=== PATIENT | male | born 1955 | race Caucasian/White ===

== ENCOUNTER 2018-12-31 11:54 | Day surgery (SDC) | payer OTHER, SELFPAY ==
[2018-12-31] VITALS (7 sets, daily range): BP systolic 131–145; BP diastolic 82–94; PULSE 64–69; RESP 12–16; TEMP 35.7–36.2; O2SAT 95–100; BMI 33.5
[2018-12-31] MEDS: SODIUM CHLORIDE 0.9% 1,000 ML 42 ML IV (12:15)
--- NOTE | 2018-12-31 13:24 | PM.HP.1 ---
History of Present Illness Date Patient Seen: 12/31/18 Time Patient Seen: 13:25 Chief complaint: EGD [id number] Narrative: Recurrent dysphagia. Patient has a history of previous substernal dysphagia which required upper endoscopy. At that time he had an esophageal dilation performed which help substantially. He was told he had a ?burning?. He has no significant reflux. Patient History Social History household members: spouse Family & Social History Social History: household members spouse Meds Home Medications Medication Instructions Recorded Confirmed Type desonide 1 applic TOPICAL DAILY PRN 12/31/18 12/31/18 History ketoconazole 1 applic TOPICAL DAILY PRN 12/31/18 12/31/18 History sildenafil 50 mg PO DAILY PRN 12/31/18 12/31/18 History Allergies Allergy/AdvReac Type Severity Reaction Status Date / Time No Known Drug Allergies Allergy Verified 12/31/18 12:17 Exam Vital Signs (past 8 hours): - 12/31/18 12:30 Temperature 96.7 F L Pulse Rate 64 Respiratory Rate 16 Blood Pressure 145/82 H Pulse Oximetry 98 Oxygen Delivery Method Room Air Narrative Exam Narrative: Oropharynx free of lesions Chest clear to auscultation percussion Cardiac exam reveals no S3 or murmur Assessment & Plan Assessment & Plan narrative: Recurrent dysphagia probably from recurrent Schatzki's ring. Need for evaluation and probable dilation. Risks benefits and alternatives have been explained. Further recommendations will follow
--- NOTE | 2018-12-31 14:18 | SUR.OPER ---
Savory dilator size 51 used to dilate patient.
--- NOTE | 2018-12-31 14:23 | P.OP.ENDO_ITS ---
Operative Date/Time/Diagnoses Date of procedure: 12/31/18 Time of procedure: 14:20 Pre-op diagnosis: See indication and findings Procedure & Clinicians Study performed: EGD with dilation Same procedure as scheduled: Yes Indications: Recurrent dysphagia Surgeon: Laura Tony Procedure Notes Procedure in detail: After informed consent was obtained the patient placed in lateral decubitus position. Video upper scope was placed into the oropharynx with the patient told the esophagus. The esophagus stomach and duodenum carefully examined. On withdrawal retroflexed view the GE junction was performed. The scope was removed. The patient tolerated the procedure well. Blood loss none Complications none Sedation Fentanyl 100 mcg Versed 5 mg IV titration Total sedation time 12 min Findings 1. No clear evidence of possible eosinophilic esophagitis 2. Inability to completely evaluate the GE junction. There seemed to be a bit more spasm than normal. There did seem to be a bit of a ring which I was able to ?pop? through with the scope and subsequently a very small amount of blood was seen. Retroflexed view did not clearly show the ring. Still, given past history, I elected to dilate with 51 Spanish Savary without any difficulty. 3. Normal stomach otherwise 4. Normal duodenal bulb and sweep Will merely see how the patient does with the dilation. If he is still having problems he should follow up with myself or other doctor in our office.
== END 2018-12-31 15:22 ==
LOC: ENDO 11:55
PROVIDERS: PCP Family Medicine; Visit Provider Internal Medicine Gastroenterology
PROC: 0DJ08ZZ Inspection of Upper Intestinal Tract, Via Natural or Artificial Opening Endoscopic (ICD-10-PCS; CPT 43235; principal; 2018-12-31 13:00)
DX: R13.10 Dysphagia, unspecified (principal)
CPT/HCPCS: 43248

== ENCOUNTER 2019-04-24 17:04 | Observation (INO) | payer OTHER, SELFPAY ==
[2019-04-24 17:19] VITALS: BP 146/99; PULSE 77; RESP 18; TEMP 36.9; O2SAT 98; BMI 33.5
--- NOTE | 2019-04-24 17:34 | ED_ITS ---
HPI - Chest Pain General Chief Complaint: Chest Pain Stated Complaint: trouble swallowing Time Seen by Provider: 04/24/19 17:27 Source: patient and family () Mode of arrival: ambulatory Limitations: no limitations History of Present Illness HPI narrative: 64-year-old male comes to the emergency department with complaint of difficulty swallowing/dysphagia. Patient has had episodes in the past. He has had multiple episodes recently. He states he has had 2 EGDs in the past, he states he thinks he was dilated at least 1 maybe both of them. The most recent was here in December with GI. Patient states last night he had some [place] fried chicken leftovers. He felt like it got stuck. Since then he has been spitting up saliva. And occasionally sort of spitting up for vomiting a large amount of saliva. He has not brought up any food. He has substernal discomfort. Patient has not had any fevers, no shortness of breath. No vomiting of food contents. Normal bowel movements and urination. He does not take any medications regularly. He denies any other past medical history. He has had a back surgery a micro diskectomy in 2002. He states after the 1st dilation he went a fairly long period of time for a started having incidence. After the most recent 1 in December he has been having them 1 sometimes twice a month since. Usually he is able to pass the food without any intervention he states he has never been to the emergency department for this problem. He denies any tobacco or alcohol use. He is accompanied by his . Related Data Home Medications Medication Instructions Recorded Confirmed desonide 1 applic TOPICAL DAILY PRN 12/31/18 04/24/19 ketoconazole 1 applic TOPICAL DAILY PRN 12/31/18 04/24/19 sildenafil 50 mg PO DAILY PRN 12/31/18 04/24/19 ibuprofen 1 dose PO PRN PRN 04/24/19 04/24/19 Allergies Allergy/AdvReac Type Severity Reaction Status Date / Time No Known Drug Allergies Allergy Verified 12/31/18 12:17 Review of Systems Review of Systems ROS Unobtainable: All systems reviewed & are unremarkable except as noted in HPI and below Constitutional Denies chills, Denies fever(s) and Denies lethargy ENT Ears, Nose, Mouth, and Throat: Reports dysphagia Cardiovascular Reports chest pain, Denies syncope, Denies dyspnea, Denies dyspnea on exertion and Denies orthopnea Respiratory Denies change in phlegm color, Denies chest congestion, Denies cough, Denies dyspnea, Denies dyspnea on exertion and Denies wheezing Gastrointestinal Gastrointestinal: Denies abdominal pain, Denies change in bowel habits, Denies constipation, Reports dysphagia, Denies diarrhea, Denies nausea and Reports vomiting (Spitting up saliva) Genitourinary Denies hematuria, Denies flank pain, Denies urinary frequency and Denies urinary urgency Musculoskeletal Denies back pain Neurologic Denies syncope Allergic/Immunologic Denies wheezing [facility] Surgical History H/O microdiscectomy (Chronic) History of esophagogastroduodenoscopy (EGD) (Chronic) Social History household members: spouse Smoking Status: Never smoker Social History household members: spouse Smoking Status: Never smoker Exam Narrative Exam Narrative: GENERAL: Alert and oriented x three, obese, well-appearing male in mild distress. HEENT: Head normocephalic, atraumatic, EOMI, pupils reactive, face symmetric, moist mucous membranes NECK: Supple, full range of motion CARDIOVASCULAR: Regular rate and rhythm without murmurs, rubs or gallops. RESPIRATORY: Breath sounds equal bilaterally, no wheezes rales or rhonchi. ABDOMEN: Soft, nontender. Normoactive bowel sounds all 4 quadrants. No guarding or rebound, rigidity, no mass, patient is regularly spinning out small amounts of saliva. : No CVA tenderness EXTREMITIES: Normal range of motion, no clubbing or edema. Neurovascularly intact NEUROLOGICAL: Cranial nerves II through XII grossly intact. Moving all extremities SKIN: Warm, dry, no petechiae, no rashes or lesions. Initial Vital Signs Initial Vital Signs: Vital Signs Temperature 98.4 F 04/24/19 17:19 Pulse Rate 77 04/24/19 17:19 Respiratory Rate 18 04/24/19 17:19 Blood Pressure 146/99 H 04/24/19 17:19 Pulse Oximetry 98 04/24/19 17:19 Course Orders Ordered: ED Orders 04/24/19 17:19 EKG-12 Lead Stat 04/24/19 17:38 Basic Metabolic Panel Stat Complete Blood Count AUTO DIFF Stat Discontinued Medications Glucagon (Glucagen) 1 mg IV NOW ONE Stop: 04/24/19 17:28 Last Admin: 04/24/19 17:40 Dose: 1 mg Sodium Chloride (Normal Saline 0.9%) 1,000 mls @ 1,000 mls/hr IV BOLUS ONE Stop: 04/24/19 18:38 Last Infusion: 04/24/19 18:50 Dose: 0 mls/hr Admin: 04/24/19 17:40 Dose: 1,000 mls/hr Vital Signs - 8 hr 04/24/19 17:19 04/24/19 18:52 Temperature 98.4 F Pulse Rate 77 65 Respiratory Rate 18 18 Blood Pressure 146/99 H Blood Pressure [Left Arm] 146/91 H Pulse Oximetry 98 99 MDM - Chest Pain Lab Data Attestation: I reviewed the patient's lab results. Result diagrams: 04/24/19 17:38 04/24/19 17:38 Lab Results 04/24/19 04/24/19 Range/Units 17:38 17:38 WBC 8.1 (4.5-11.0) X10^3/uL RBC 5.09 (4.5-5.9) X10^6/uL Hgb 15.1 (13.5-17.5) g/dL Hct 44.1 (41-53) % MCV 86.8 (80-100) fL MCH 29.7 (26-34) PG MCHC 34.3 (30-36) % RDW 14.0 (11.6-14.8) % Plt Count 280 (150-400) X10^3/uL Neut % (Auto) 63.6 (50-75) % Lymph % (Auto) 24.3 L (25-40) % [place] % (Auto) 9.5 (3-14) % Eos % (Auto) 1.6 L (2-4) % Baso % (Auto) 1.0 (0-2) % Neut # (Auto) 5100 (2223-1168) /uL Lymph # (Auto) 2000 (6369-5494) /uL [place] # (Auto) 800 (0-900) /uL Eos # (Auto) 100 (0-450) /uL Baso # (Auto) 100 (0-100) /uL Sodium 141 (137-145) mmol/L Potassium 3.9 (3.4-5.1) mmol/L Chloride 103 (98-107) mmol/L Carbon Dioxide 27 (22-32) mmol/L BUN 23 H (9-20) mg/dL Creatinine 1.10 (0.66-1.25) mg/dL Estimated GFR > 60.0 (>60) mL/min BUN/Creatinine Ratio 20.9 (6-22) Glucose 93 (80-110) mg/dL Calcium 9.4 (8.4-10.2) mg/dL ECG Data Attestation: I personally reviewed and interpreted this ECG as follows: Prior ECG tracings: not available for review Interpretation: Sinus rhythm rate of 70 P are 160 QRS of 92 and QTC of 395. No ST elevation or depression. MDM Narrative Medical decision making narrative: Patient was given glucagon, he attempted to swallow carbonated clear beverage without success. He is continuing to spit up saliva. Spoke with Dr. Hope, he will come and see patient. Plan for OR later this evening they are currently full with cases. Patient is tolerating secretions at this time but continues to spit up saliva. Dr. Hope saw patient in department. He will take for OR this evening. NPO until procedure. Signed out to Dr. Queen while awaiting OR. Discharge Plan Departure Patient Disposition: Admitted as Observation Clinical Impression: Food impaction of esophagus Referrals: Kimi Loving MD [Primary Care Provider] -
[2019-04-24 17:40] LABS: Add Manual Diff / Slide Review NO; Basophils Absolute Auto 100 /uL (0-100); Eosinophils Absolute Auto 100 /uL (0-450); Eosinophils Percent Auto 1.6 % (2-4); Hematocrit 44.1 % (41-53); Hemoglobin 15.1 g/dL (13.5-17.5); Lymphocytes Absolute Auto 2000 /uL (1100-4500); Lymphocytes Percent Auto 24.3 % (25-40); Mean Corpuscular HGB Conc 34.3 % (30-36); Mean Corpuscular Hemoglobin 29.7 PG (26-34); Mean Corpuscular Volume 86.8 fL (80-100); Monocytes Absolute Auto 800 /uL (0-900); Monocytes Percent Auto 9.5 % (3-14); Neutrophils Absolute Auto 5100 /uL (1500-7000); Neutrophils Percent Auto 63.6 % (50-75); Platelet Count 280 X10^3/uL (150-400); Red Blood Cell Count 5.09 X10^6/uL (4.5-5.9); White Blood Cell Count 8.1 X10^3/uL (4.5-11.0)
[2019-04-24] MEDS: GLUCAGON,HUMAN RECOMBINANT 1 MG/ML VIAL IV (17:40)
[2019-04-24] MEDS: SODIUM CHLORIDE 0.9% 1,000 ML 1000 ML IV (17:40)
--- NOTE | 2019-04-24 17:48 | PC.NURSE ---
The patient reports dysphagia which started about 23 hrs [employer]. He reports has a history of dysphagia, started having recurring symptoms when he sat down and had a couple of bites of fried chicken yesterday. Pt frequently spitting out his own saliva, c/o pressure in mid chest, denies dyspnea. Pt had clear speech.
[2019-04-24 17:53] LABS: BUN Creatinine Ratio 20.9 (6-22); Blood Urea Nitrogen 23 mg/dL (9-20); Calcium 9.4 mg/dL (8.4-10.2); Carbon Dioxide 27 mmol/L (22-32); Chloride 103 mmol/L (98-107); Estimated Glomerular Filt Rate > 60.0 mL/min (>60); Glucose 93 mg/dL (80-110); HEMOLYSIS < 15 (0-50); Potassium 3.9 mmol/L (3.4-5.1); Sodium 141 mmol/L (137-145)
--- NOTE | 2019-04-24 18:13 | PC.NURSE ---
Clear liquid, Trinh charli, provided and advised the patient to take sips whether he could tolerate this. Pt spitting up saliva and states still feels pressure in the mid chest.
--- NOTE | 2019-04-24 18:50 | PC.NURSE ---
Late Entry at 1816-Pt unable to tolerate 1/2 cup of clear soda and informed Dr. Munoz.
[2019-04-24 18:52] VITALS: BP 146/91; PULSE 65; RESP 18; O2SAT 99
--- NOTE | 2019-04-24 18:55 | PC.NURSE ---
Pt evaluated by Dr. York at bedside for admission/procedure.
--- NOTE | 2019-04-24 19:01 | P.HP_ITS ---
History of Present Illness Date Patient Seen: 04/24/19 Time Patient Seen: 18:55 Chief complaint: trouble swallowing Narrative: The patient is a gentleman with dysphagia. This is been going on for years. In the late winter this year he had an EGD and dilatation. Ever since that he has continued to have problems with food sticking an obtuse blocking him temporarily. This episode started yesterday evening about 6:00 p.m.. He was eating chicken and his esophagus became obstructed. He is not tolerating his saliva since. He thought it would go down on its own so has not come into the emergency room until this evening. Patient History Surgical History H/O microdiscectomy (Chronic) History of esophagogastroduodenoscopy (EGD) (Chronic) Social History household members: spouse Smoking Status: Never smoker Family & Social History Social History: household members spouse Safety & Behavioral: Feels Safe in Current Yes Environment Been Physically Hurt or No Threatened By a Person Tobacco & Substance use: Smoking Status Never smoker alcohol intake frequency other Substance Use Type does not use Meds Home Medications Medication Instructions Recorded Confirmed Type desonide 1 applic TOPICAL DAILY PRN 12/31/18 04/24/19 History ketoconazole 1 applic TOPICAL DAILY PRN 12/31/18 04/24/19 History sildenafil 50 mg PO DAILY PRN 12/31/18 04/24/19 History ibuprofen 1 dose PO PRN PRN 04/24/19 04/24/19 History Allergies Allergy/AdvReac Type Severity Reaction Status Date / Time No Known Drug Allergies Allergy Verified 12/31/18 12:17 Review of Systems Review of Systems Patient denies acute visual difficulties, no tooth aches. No cough cold or asthma. No chest pain or heart problems. Denies black or bloody bowel movements. No dysuria or hematuria. No seizures or blackouts. Exam Vital Signs (past 8 hours): - 04/24/19 17:19 Temperature 98.4 F Pulse Rate 77 Respiratory Rate 18 Blood Pressure 146/99 H Pulse Oximetry 98 Oxygen Delivery Method Room Air Narrative Exam Narrative: Cooperative gentleman. Spitting into a bag. Otherwise in no distress. He is obese. Eyes are nonicteric. Neck is supple without masses. Lungs are clear to auscultation without rales or rhonchi. Heart regular rate and rhythm without murmur gallop. Fairly slow rate. Abdomen is protuberant soft nontender without mass. No hernias appreciated. Patient is alert and oriented x3. Speech rate and content are appropriate. Objective Labs Result Diagrams: 04/24/19 17:38 04/24/19 17:38 Labs: Laboratory Results - last 24 hr 04/24/19 04/24/19 17:38 17:38 WBC 8.1 RBC 5.09 Hgb 15.1 Hct 44.1 MCV 86.8 MCH 29.7 MCHC 34.3 RDW 14.0 Plt Count 280 Neut % (Auto) 63.6 Lymph % (Auto) 24.3 L [place] % (Auto) 9.5 Eos % (Auto) 1.6 L Baso % (Auto) 1.0 Neut # (Auto) 5100 Lymph # (Auto) 2000 [place] # (Auto) 800 Eos # (Auto) 100 Baso # (Auto) 100 Sodium 141 Potassium 3.9 Chloride 103 Carbon Dioxide 27 BUN 23 H Creatinine 1.10 Estimated GFR > 60.0 BUN/Creatinine Ratio 20.9 Glucose 93 Calcium 9.4 Assessment & Plan Assessment & Plan narrative: Will proceed to EGD under general anesthesia to try to relieve his esophageal obstruction from presumptively chicken. I have discussed the procedure with him. Risks of bleeding, perforation, aspiration were discussed with him. We will put him to sleep and use an ET tube in order to protect his airway. All questions were answered. I would not attempt to dilate him at this setting as he has had a piece of chicken lodged in his saw a esophagus for over 24 hours there may well be a great deal of edema and injury already to the area.
[2019-04-24 19:38] VITALS: BP 159/96; PULSE 68; RESP 18; O2SAT 98
[2019-04-24 19:43] VITALS: BMI 33.5
[2019-04-24 19:49] VITALS: BP 162/88; PULSE 61; RESP 8; TEMP 37; O2SAT 98
[2019-04-24] MEDS: LACTATED RINGERS 1,000 ML 42 ML IV (19:50)
--- NOTE | 2019-04-24 20:36 | SUR.HOLD ---
Pt reported feeling the pressure easing in his chest and has not regurgitated for over an hour. Dr. Hope evaluated patient. Pt able to swallow water without difficulty. EGD cancelled per MD. D/C instructions reviewed.
--- NOTE | 2019-04-24 20:40 | SUR.HOLD ---
Pt dressed independently, gait steady. Pt. and spouse escorted to the lobby.
== END 2019-04-24 20:56 | disposition home or self-care (01) ==
LOC: ED 18:23 → AC 19:30
PROVIDERS: Admitting Provider Specialist; Emergency Provider Emergency Medicine; PCP Family Medicine; Visit Provider Specialist
PROC: 0DJ08ZZ Inspection of Upper Intestinal Tract, Via Natural or Artificial Opening Endoscopic (ICD-10-PCS; CPT 43235; principal; 2019-04-24 20:00)
DX: T17.228A Food in pharynx causing other injury, initial encounter (principal); R13.10 Dysphagia, unspecified
CPT/HCPCS: 36591; 80048; 85025; 93005; 94762; 96361; 96374; 99282; 99284; G0378; J1610